=== PATIENT | female | born 2000 | race Caucasian/White ===

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

== ENCOUNTER 2021-10-16 13:02 | Emergency (ER) | payer OTHER ==
[2021-10-16 13:43] LABS: BASOPHIL 0.7 % (0-2); EOSINOPHIL 2.1 % (0-5); HCT 43.8 % (37.0-47.0); HGB 14.6 g/dl (12.5-16.0); LYMPHOCYTE 32.2 % (15-48); MCHC 33.3 g/dL (32.0-36.0); MONOCYTE 5.9 % (0-12); MPV 9.5 fL (6.0-9.5); NRBC 0; PLT 250 K/uL (150-400); RBC 4.71 M/uL (4.20-5.40); RDW 12.1 % (11.5-14.0); WBC 6.8 K/uL (4.0-10.5)
[2021-10-16 14:02] LABS: BUN 12 mg/dL (7-18); BUN/CREAT RATIO (CALC) 17.9 RATIO; CHLORIDE 104 mmol/L (98-107); CO2 (BICARBONATE) 26 mmol/L (21-32); CREATININE 0.67 mg/dL (0.51-0.95); GLUCOSE 98 mg/dL (74-106); POTASSIUM 3.5 mmol/L (3.5-5.1)
== END 2021-10-16 15:19 | disposition home or self-care (01) ==
LOC: FER 13:02
PROVIDERS: Physician Assistant
DX: R20.2 Paresthesia of skin (principal); Z28.311 Partially vaccinated for COVID-19
CPT/HCPCS: 36415; 71045; 80048; 84484; 85025; 85379; 93005